=== PATIENT | female | born 1980 | race Caucasian/White ===

== ENCOUNTER → 2018-01-18 10:44 | Outpatient (CLI) | payer OTHER, SELFPAY ==
--- NOTE | 2018-01-18 10:45 | DI.US.S_ITS ---
PROCEDURE: US OB >= 14 WEEKS FETUS INDICATIONS: ANATOMY OUTSIDE/PRIOR DATING DATA: Last menstrual period (LMP): 08/23/2017. LMP-based estimated date of delivery (HEATHER): 05/30/2018. First dating scan (date and location): 11/09/2017. Estimated date of delivery (HEATHER) from first dating scan: 05/26/2018. TECHNIQUE: Real-time scanning was performed of the fetus, with image documentation and biometric measurements. Endovaginal scanning: Not required COMPARISON: [facility], , OB COMPLETE LESS THAN 14 WKS, 11/09/2017, 9:36. FINDINGS: General: A single living intrauterine gestation is present. Presentation: Vertex. Placenta: Placental position is anterior, without previa. Amniotic fluid index: 13.9 cm, normal range is 5-24 cm. heart rate: 135 beats per minute. Maternal cervical canal: 3.5 cm long. Normal lower limit is 2.5 cm. biometrics: Biparietal diameter: 20 weeks 5 days Head circumference: 21 weeks 2 days Abdominal circumference: 21 weeks 5 days Femur length: 22 weeks 2 days Estimated gestational age from initial scan: 21 weeks 5 days Composite gestational age from present scan: 21 weeks 4 days, normal growth Estimated weight and percentile: 456 g at the 51st percentile Measurement variability for biometric dating: +/- 7 days from 14 weeks to 15 weeks 6 days gestation, +/- 10 days from 16 weeks to 21 weeks 6 days gestation, +/- 2 weeks from 22 weeks to 27 weeks 6 days gestation, +/- 3 weeks for 28 weeks gestation or later. weight reference: 4500 g or EFW >90/95% is considered macrosomia or large for gestational age. EFW <10% is small for gestational age. EFW 5% or less is considered intra-uterine growth restriction. Anatomic survey: Neuro: Ventricles are non-dilated at less than 10 mm. Cisterna magna is normal at 3-11 mm. Cerebellum is normal in size and morphology. Nuchal skin fold: Normal at less than 6 mm between 14-21 weeks gestational age. Face: Nose and lips, facial profile are normal. Spine: No evidence for spina bifida. Heart: 4-chambered heart is present, with normal ventricular outflow tracts. Diaphragm: Diaphragm is intact. Stomach: Left-sided stomach is present. Kidneys: No hydronephrosis. Normal is less than 5 mm in 2nd trimester, less than 7 mm in 3rd trimester. Cord: 3-vessel cord has orthotopic insertion. Bladder: Normal in size. Extremities: All 4 extremities identified. IMPRESSION: Single, live intrauterine gestation in Vertex lie showing composite gestational age of 21 weeks 4 days, normal growth and normal anatomy. Dictated by: García Rollins M.D. on 01/18/2018 at 12:20 Approved by: García Rollins M.D. on 01/18/2018 at 12:25
== END ==
PROVIDERS: Visit Provider Specialist
DX: Z34.82 Encounter for supervision of other normal pregnancy, second trimester (principal); Z3A.21 21 weeks gestation of pregnancy
CPT/HCPCS: 76811

== ENCOUNTER 2018-05-03 12:26 | Observation (INO) | payer OTHER, SELFPAY ==
--- NOTE | 2018-05-03 17:12 | PM.OBTRLD ---
Visit Information Visit Information Date of evaluation: 05/03/18 Primary OB Provider: Stella Fernández On-call OB Provider: Ivana Delvalle Reason for Evaluation: Yes rupture of membranes Evaluation Evaluation Baseline heart rate: 130 Variability: Moderate (11-25) monitor accelerations: Present monitor decelerations: Absent Category of Tracing: I Diagnosis, Plan/Disposition Final Diagnosis (1) 36 weeks gestation of : Current Visit: No Status: Acute Plan/Disposition Plan: Patient is a 37 year old at 36 weeks gestation. Patient had possible leaking of fluid once on 05/01 and once on 05/02 when getting out of the shower. No leaking today. She went to the ER in [place] today for possible ROM. They checked her cervix (reportedly 3 cm) but were unsure of ROM so sent her to [facility]. Given use of gel with SVE Amnisure would be invalid. Sterile speculum exam performed with minimal fluid and small amount of mucus. Ferning negative. Patient discharged home and instructed to follow up with Dr. Fernández as scheduled later this week. GBS collected today as well.
[2018-05-04 17:50] LABS: Strep Grp B PCR POS for Grp B Strep
== END 2018-05-03 15:08 | disposition home or self-care (01) ==
PROVIDERS: Family Medicine; Admitting Provider Specialist; Visit Provider Specialist
DX: O42.913 Preterm premature rupture of membranes, unspecified as to length of time between rupture and onset of labor, third trimester (principal); Z3A.36 36 weeks gestation of pregnancy
CPT/HCPCS: 59025; 59050; 87210; 87653; G0378; G0379

== ENCOUNTER 2018-05-07 09:33 | Inpatient (IN) | payer OTHER, SELFPAY ==
[2018-05-07 10:19] LABS: Add Manual Diff / Slide Review NO; Basophils Percent Auto 0.3 % (0-2); Eosinophils Percent Auto 0.5 % (2-4); Hematocrit 32.9 % (36-46); Hemoglobin 11.2 g/dL (12.0-16.0); Lymphocytes Percent Auto 14.3 % (25-40); Mean Corpuscular HGB Conc 33.9 % (30-36); Mean Corpuscular Hemoglobin 29.6 PG (26-34); Mean Corpuscular Volume 87.5 fL (80-100); Monocytes Percent Auto 4.6 % (3-14); Neutrophils Absolute Auto 6500 /uL (3000-5900); Neutrophils Percent Auto 80.3 % (50-75); Platelet Count 172 X10^3/uL (150-400); Red Blood Cell Count 3.76 X10^6/uL (4.0-5.2); Red Cell Distribution Width 13.9 % (11.6-14.8); White Blood Cell Count 8.1 X10^3/uL (4.5-11.0)
[2018-05-07] MEDS: PENICILLIN G POTASSIUM 5,000,000 UNIT in DEXTROSE 5% IN WATER 250 ML IV (10:24)
[2018-05-07] MEDS: LACTATED RINGERS 1,000 ML 125 ML IV ×2 (10:24→12:20)
[2018-05-07] MEDS: PENICILLIN G POTASSIUM 3,000,000 UNIT/50 ML FROZ.PIGGY 100 UNIT IV (14:00)
--- NOTE | 2018-05-07 16:25 | PM.OBPRVD ---
Events: Labor < 37 Weeks Delivery date: 05/07/18 Delivery monitor: external FHT and external uterine Route of delivery: Laceration description: None Estimated blood loss (mL): 400 Anesthesia type: Epidural Narrative: Patient arrived on Labor and delivery with spontaneous rupture membranes. She started into active labor. She was started on IV penicillin for positive group B strep culture. She received an epidural catheter for pain control. She delivered spontaneously a viable female with a very tight nuchal cord. The was initially placed on maternal abdomen and then taken to the warmer for resuscitation. The placenta delivered spontaneously, intact, with 3 vessels. The patient had no cervical, vaginal, perineal tears. Patient did have some mild hemorrhage that responded to IM Pitocin, IM Hemabate, perirectal Cytotec. Baby 1: gender: Female Presentation: vertex position: Right Occiput Anterior Placenta delivery description: Spontaneous cord vessel description: Tight score (1 min): 7 score (5 min): 9 Plan for aftercare: Routine care
[2018-05-07] MEDS: OXYTOCIN 10 UNIT/ML VIAL IM (16:30)
--- NOTE | 2018-05-07 16:30 | PM.OBHP.1 ---
OB HPI Date/Time Date of admission: 05/07/18 Date Patient Seen: 05/07/18 Time Patient Seen: 12:31 History of Present Condition Chief complaint: OBS : 2 Para: 1 Estimated Date of Delivery: 05/30/18 Estimated Gestational Age (weeks): 36 Narrative: Javad Glass is a 37 year old female who arrived on Labor and delivery with spontaneous rupture membranes History of Present care: good care and initiated at week # (11) Dating criteria: LMP confirmed by 1st trimester US Ultrasounds: normal mid trimester US Obstetrical complications: none Medical complications: none Preadmission Labs Blood type: O (+) positive -: Antibody screen: negative, GBS status: positive, HBsAG: negative, HIV: negative, HSV 1: positive, HSV 2: negative and RPR/VDLR: negative -: Chlamydia screen: not detected and Gonorrhea screen: not detected -: Rubella: immune HCT: 30 HCAB: negative 1 hr GTT: 152 3 hr GTT: 1 hr (175), 2 hr (158) and 3 hr (122) Fasting blood glucose: 86 Prior (ies) History: 09/04/2013 34 week gestation vaginal delivery male weighing 5 lb 14 oz Evaluation Evaluation Laboratory results: Laboratory Tests 05/07/18 05/07/18 10:00 10:00 WBC 8.1 RBC 3.76 L Hgb 11.2 L Hct 32.9 L MCV 87.5 MCH 29.6 MCHC 33.9 RDW 13.9 Plt Count 172 Neut % (Auto) 80.3 H Lymph % (Auto) 14.3 L Reynolds % (Auto) 4.6 Eos % (Auto) 0.5 L Baso % (Auto) 0.3 Neut # (Auto) 6500 H Blood Type O Positive Antibody Screen Negative [facility] Medical History Migraines (Acute) Review of Systems Review of Systems Patient with leakage of fluid. No significant contractions. No vaginal bleeding. Good movement. No signs or symptoms of preeclampsia All systems reviewed & are unremarkable except as noted in HPI and below Exam Vital Signs (past 8 hours): Blood pressure 112/75, pulse of 88, temperature 97.7? Narrative Exam Narrative: HEENT exam within normal limits. Lungs are clear to auscultation and percussion. Heart is regular rate and rhythm, no S3-S4 or murmurs. Abdomen is soft with vertex presentation infant. Patient with positive rupture of membranes. Extremities with trace edema and nontender. Manual OB Exam: dilated 8, effaced 75% and station -1 Uterus Location (Fundal Height): 37 Presentation: vertex Estimated Weight (lbs): 7 Amniotic Fluid: clear Other: heart tone baseline 120s with accelerations and no decelerations Objective Labs Result Diagrams: 05/07/18 10:00 Labs: Laboratory Results - last 24 hr 05/07/18 05/07/18 10:00 10:00 WBC 8.1 RBC 3.76 L Hgb 11.2 L Hct 32.9 L MCV 87.5 MCH 29.6 MCHC 33.9 RDW 13.9 Plt Count 172 Neut % (Auto) 80.3 H Lymph % (Auto) 14.3 L Reynolds % (Auto) 4.6 Eos % (Auto) 0.5 L Baso % (Auto) 0.3 Neut # (Auto) 6500 H Blood Type O Positive Antibody Screen Negative Assessment and Plan (1) 36 weeks gestation of : Current visit: No Status: Acute 36-5/7 weeks by dates with spontaneous rupture membranes and positive group B strep culture. Patient will receive IV penicillin and an epidural catheter for pain control. Anticipate vaginal delivery (2) Encounter for supervision of other normal , third trimester: Current visit: Yes Status: Acute
[2018-05-07] MEDS: CARBOPROST 250 MCG/ML AMPUL IM (16:35)
[2018-05-07] MEDS: miSOPROStol 200 MCG TABLET 800 MCG PR (16:35)
[2018-05-07 18:29] VITALS: BP 120/61
[2018-05-08 06:33] LABS: Hemoglobin 8.3 g/dL (12.0-16.0)
--- NOTE | 2018-05-08 07:07 | PM.OBPN.1 ---
Subjective - OB Interval history: Patient is doing well post vaginal delivery. She has some the cramping and vaginal discomfort. She is urinating and ambulating well. Breast-feeding is going well. Patient comments: pain well controlled baby status: doing well [place] feeding status: exclusively breast feeding Date Patient Seen: 05/08/18 Time Patient Seen: 07:08 Exam Vital Signs (past 8 hours): Blood pressure 110/66 pulse of 100 temperature 99.4? Narrative Exam Narrative: Abdomen is soft, nontender. Uterus is firm, at U, nontender. Perineum was intact. Mild lochia. Extremities without edema and nontender. Objective Labs Result Diagrams: 05/08/18 06:16 Labs: Laboratory Results - last 24 hr 05/07/18 05/07/18 05/08/18 10:00 10:00 06:16 WBC 8.1 RBC 3.76 L Hgb 11.2 L 8.3 L Hct 32.9 L 24.0 L MCV 87.5 MCH 29.6 MCHC 33.9 RDW 13.9 Plt Count 172 Neut % (Auto) 80.3 H Lymph % (Auto) 14.3 L Nolan % (Auto) 4.6 Eos % (Auto) 0.5 L Baso % (Auto) 0.3 Neut # (Auto) 6500 H Blood Type O Positive Antibody Screen Negative Assessment & Plan (1) 36 weeks gestation of : Status: Acute Current Visit: No (2) Encounter for supervision of other normal , third trimester: Status: Acute Current Visit: Yes (3) Vaginal delivery: Problem details: Normal exam. Routine care Status: Acute Current Visit: Yes Time Spent With Patient Total time spent is greater than 50% in coordination of care (as documented) at patient's floor/unit and/or counseling patient: less than 15 minutes
[2018-05-08] MEDS: IBUPROFEN 600 MG TABLET PO ×2 (13:34→19:51)
[2018-05-09] MEDS: IBUPROFEN 600 MG TABLET PO (02:05)
--- NOTE | 2018-05-09 10:25 | P.DS_ITS ---
Discharge Providers Date of admission: 05/07/18 09:33 Consults: 05/07/18 17:12 Consult to [employer] Routine Comment: Discharge provider: Stella Fernández MD Discharge Date: 05/09/18 Summary Date Patient Seen: 05/09/18 Time Patient Seen: 10:24 Peripartum Data Infant Delivery Method: Natural Vaginal Laceration description: None Procedures: Epidural catheter, IV antibiotics for positive group B strep, spontaneous vaginal delivery complications: uterine atony Discharge Diagnosis (1) 36 weeks gestation of : Status: Acute (2) Encounter for supervision of other normal , third trimester: Status: Acute (3) Vaginal delivery: Status: Acute Problem Details: Normal exam. Routine care (4) Acute blood loss anemia: Status: Acute Status at Discharge Functional status at discharge: independent ambulation Overall status at discharge: patient is progressing back to baseline Time Spent with Patient Total time spent providing and/or coordinating discharge services: Less than 30 minutes Objective Labs Result Diagrams: 05/08/18 06:16 Discharge Plan Discharge Plan Patient Disposition: Home Discharge Med Rec/Prescriptions Prescriptions: New ibuprofen 600 mg Tablet 600 mg PO Q6HR PRN (Reason: Pain, Mild (1-3)) Qty: 30 RF: 0 docusate sodium 250 mg Capsule 250 mg PO DAILY Qty: 20 RF: 0 ferrous gluconate 324 mg (38 mg iron) Tablet 324 mg PO DAILY Qty: 30 RF: 0 Follow up/Referrals: Stella Fernández MD [Physician] - 1 Month Provider Discharge Instructions Diet: Regular Activity: Nothing in your vagina for 4 weeks Skin/Wound/Dressing Care Report to your healthcare provider any signs of infection, such as:: chills, fever, night sweats and unusual drainage Discharge Data Attending Provider: Stella Fernández Admit Date/Time: 05/07/18 09:33
[2018-05-09 16:51] VITALS: BP 120/61; PULSE 78; RESP 18; TEMP 36.3
== END 2018-05-09 18:45 | disposition home or self-care (01) | DRG 768 ==
PROVIDERS: Admitting Provider Specialist; Visit Provider Specialist
DX: O99.824 Streptococcus B carrier state complicating childbirth (principal); Z37.0 Single live birth; O69.1XX0 Labor and delivery complicated by cord around neck, with compression, not applicable or unspecified; O60.14X0 Preterm labor third trimester with preterm delivery third trimester, not applicable or unspecified; Z3A.36 36 weeks gestation of pregnancy; O72.1 Other immediate postpartum hemorrhage
CPT/HCPCS: 01967; 36415; 59050; 59400; 85014; 85018; 85025; 86850; 86900; 86901; G0379; J2540; J2590; J3010; S0191